=== PATIENT | female | born 1980 | race African-American/Black ===

== ENCOUNTER 2016-05-19 12:47 | Emergency (ER) ==
[2016-05-19] MEDS ORDERED: MORPHINE IV ONE (13:57)
[2016-05-19] MEDS ORDERED: ZOFRAN IV ONE (13:58)
--- NOTE | 2016-05-19 13:59 | PROVIDER DOCUMENTATION ---
HPI-Abdominal Pain/GI Problem - General Chief Complaint: Diarrhea Stated Complaint: ABD PAIN Time Seen by Provider: 05/19/16 13:50 Source: patient Allergies/Adverse Reactions: Patient Allergies Allergy/AdvReac Type Severity Reaction Status Date / Time No Known Allergies Allergy Verified 05/19/16 13:31 Home Medications: Home Medication List Medication Instructions Recorded Confirmed Last Taken Type Estradiol [Estrace] 2 mg PO DAILY 01/21/14 11/27/15 11/26/15 History Valacyclovir HCl [Valtrex] 500 mg PO PRN PRN 03/18/15 11/27/15 11/26/15 History Hyoscyamine Subl [Levsin-Sl] 0.125 mg PO 05/19/16 Unknown History Ketorolac [Toradol] 10 mg PO Q8H PRN PRN #14 tablet 05/19/16 Unknown Rx Ondansetron Odt [Zofran 8Mg Odt] 8 mg PO Q8H PRN PRN #20 tablet 05/19/16 Unknown Rx Sulfamethoxazole/Trimethoprim 1 each PO BID #20 tablet 05/19/16 Unknown Rx [Bactrim Ds Tablet] - History of Present Illness-ABD Nature of Presenting Problems: 35 yof with Abd pain x 24 hours. Pain continues to get worse. Diarrhea, with vomiting x 1. Abdominal Pain Onset Location: reports: generalized abdomen Pain Radiation: reports: no radiation Quality of Pain: reports: cramping, sharp Severity in ED: reports: moderate Onset/Duration: reports: 24 hours ago Timing: reports: still present, getting worse Activities at Onset: reports: moderate activity Exposure to sick contacts?: No Modifying Factors: improves with: analgesics Associated Symptoms: reports: nausea, vomiting Last BM: 24 hours ago Dark Stools Present?: reports: none noticed Rectal Bleeding: reports: none Rectal Pain: reports: none # of Vomiting Episodes: 1 Bruising or Bleeding Gums?: No Similar Symptoms Previously?: No Recently seen or treated by another doctor?: No Review of Systems - Adult - REVIEW OF SYSTEMS - ADULT Constitutional: reports: see HPI Eyes: reports: no symptoms reported. denies: see HPI, discharge, dry eyes, decreased vision, blurred vision, double vision, eye pain, redness, other Ears, Nose, Mouth & Throat: reports: no symptoms reported. denies: see HPI, ear discharge, ear pain, hearing loss, tinnitus, epistaxis, sinus problem, nose pain, loose teeth, mouth/dental pain, mouth swelling, hoarseness, throat pain, throat swelling, other Cardiovascular: reports: no symptoms reported. denies: see HPI, chest pain, edema, heart murmur, irregular heart rate, orthopnea, palpitations, poor circulation, PND, syncope, other Respiratory: reports: no symptoms reported. denies: see HPI, chronic cough, cough, dyspnea on exertion, excessive sputum production, hemoptysis, pleurisy, shortness of breath, wheezing, other Gastrointestinal: reports: see HPI, abdominal pain, diarrhea, nausea, vomiting. denies: no symptoms reported, hematemesis, constipation, difficulty swallowing , frequent heartburn, poor appetite, rectal bleeding, other Genitourinary: reports: no symptoms reported. denies: see HPI, dysuria, discharge, frequency, flank pain, frequent UTI's, hematuria, hesitency, incontinence, urinary retention, urgency, other Musculoskeletal: reports: no symptoms reported, joint pain, muscle aches. denies: see HPI, bone pain, back pain, frequent leg cramps, joint swelling, muscle weakness, neck pain, other Integumentary: reports: no symptoms reported. denies: see HPI, hives, hair loss , itching, mole changes, nail changes, rash, skin sores/ulcer, skin thickening, other Neurological: reports: no symptoms reported. denies: see HPI, ataxia, dizziness /vertigo, headache/migraines, loss of balance, numbness, paresthesia, seizure, slurred speech, syncope, tremors, other Psychiatric: reports: no symptoms reported. denies: see HPI, anxiety, anti- depressant use, alcohol/drug dependence, depression, emotional problems, insomnia, panic attacks, suicidal thoughts, other Endocrine: reports: no symptoms reported. denies: see HPI, change in skin pigment, excessive sweating, goiter, cold intolerance, heat intolerance, increased hunger, increased thirst, polyuria, other All Other Systems: Reviewed and Negative Past History - Adult - PAST MEDICAL HISTORY-ADULT Review of Records: reports: Old Records Reviewed, Nursing Assessment Review, Medications Reviewed, Social history reviewed & non-contributory. Major Childhood Illnesses: reports: denies history Respiratory: reports: sleep apnea Gastrointestinal: reports: hemorrhoids, IBS Obstetrical/Gynecological: reports: endometriosis - PRIOR SURGERIES/PROCEDURES Surgical/Procedure History: reports: appendectomy, cholecystectomy, hysterectomy , , orthopedic (extremity) - IMMUNIZATION STATUS Childhood Immunizations: See Nurse Assessment Flu Vaccine: See Nurse Assessment - FAMILY HISTORY Family History: reviewed, not pertinent Physical Exam-General - PHYSICAL EXAM-ADULT Initial Vital Signs Reviewed: Yes - CONSTITUTIONAL General Appearance: appears well, alert, no apparent distress. negative: mild distress, moderate distress, severe distress, cachetic, obese, thin, anxious, lethargic, slow to respond, obtunded, combative, other - EYES Eyes: PERRL/EOMI, pink conjunctivae. negative: fundi clear, no AV nicking, anisocoria, conjuctival exudate, EOM palsy, meningismus, pale conjunctivae, photophobia, sclera injected, scleral icterus, subconjunctival hemorrhage, sunken eyes, other - HEAD, EARS, NOSE, MOUTH & THROAT HENMT: normocephalic/atraumatic, moist mucous membranes, normal ENT inspection, TMs normal, pharynx normal. negative: angioedema, dental decay, hearing deficit , pharyngeal erythema, tonsillar exudate, TM abnormal, TM obscurred by cerumen, frontal tenderness, maxillary tenderness, other - NECK Neck: non-tender, full range of motion, supple, normal inspection. negative: Brudzinski's sign, carotid bruit, C-spine tenderness, limited range of motion, lymphadenopathy, meningismus, trachial deviation, tender lateral, tender midline , thyromegaly, other - RESPIRATORY Respiratory: chest non-tender, lungs clear, normal breath sounds, no pleuratic chest pain, no respiratory distress, no accessory muscle use. negative: respiratory distress, decreased breath sounds, accessory muscle use, crackles, rales, rhonchi, stridor, wheezing, dull on percussion, prolonged expiration, pain on inspiration, plerual rub, retractions, splinting, decreased rate, increased rate, crepitus, other - CARDIOVASCULAR Cardiovascular: normal peripheral pulses, regular rate, rhythm, no edema, no gallop, no JVD, no murmur. negative: JVD, bradycardia, tachycardia, diastolic murmur, systolic murmur, gallop/S3, gallop/S4, extra beats, friction rub, irregularly irregular, PMI displaced laterally, other - CHEST (BREASTS) Chest/Breast: deferred. negative: normal breast inspection, no masses/lumps, no tenderness, nipple discharge, tenderness, mass/lump noted, other - GASTROINTESTINAL (ABDOMEN) Abdominal Exam: normal bowel sounds, soft, no organomegaly, no pulsatile mass, guarding, tenderness. negative: non tender, abdominal bruit, abnormal bowel sounds, distended, rigid, rebound, hernia, mass, hepatomegaly, spleenomegaly, McBurney's point tenderness, Ceron's sign, obturator sign, prominent aortic pulsations, psoas, Rovsing's sign, other - GENITOURINARY Female Genitalia/Pelvic Exam: deferred Rectal Exam: deferred Hemoccult Exam: deferred - LYMPHATIC Lymphatic: no adenopathy, axilla node tender - MUSCULOSKELETAL Back Exam: normal inspection, no CVA tenderness, no vertebral tenderness. negative: CVA tenderness, decreased range of motion, ecchymosis, kyphosis, lordosis, muscle spasm, scoliosis, swelling, vertebral tenderness, other Extremity: normal range of motion, non-tender, normal gait Progress - PLAN OF CARE/RESULTS Progress/Plan/Lab Results: Laboratory Tests 05/19/16 05/19/16 05/19/16 14:09 14:09 14:15 WBC 4.47 L RBC 4.51 Hgb 13.1 Hct 40.4 MCV 89.6 MCH 29.0 MCHC 32.4 L RDW Std Deviation 13.4 Plt Count 293 MPV 10.2 Immature Gran % (Auto) 0.0 Neut % (Auto) 62.1 Lymph % (Auto) 28.4 [place] % (Auto) 5.4 Eos % (Auto) 3.4 Baso % (Auto) 0.7 Immature Gran # (Auto) 0.00 Neut # (Auto) 2.78 Lymph # (Auto) 1.27 [place] # (Auto) 0.24 Eos # (Auto) 0.15 Baso # (Auto) 0.03 Sodium 139 Potassium 3.5 Chloride 102 Carbon Dioxide 25 Anion Gap 12 BUN 9 Creatinine 0.6 Estimated GFR/1.73 m2 > 60 BUN/Creatinine Ratio 15 Glucose 91 Calculated Osmolality 276 Calcium 10.0 Total Bilirubin 0.30 AST 20 ALT 9 L Alkaline Phosphatase 58 Total Protein 7.9 Albumin 4.6 Globulin 3.0 Albumin/Globulin Ratio 1.0 Amylase 54 Lipase 11 L Urine Source CLEAN CATCH Urine Color YELLOW Urine Clarity CLEAR Urine pH 6.0 Ur Specific [place] 1.020 Urine Protein 1+(30 mg/dL) A Urine Ketones 2+(Moderate) A Urine Blood 2+ A Urine Nitrite NEGATIVE Urine Bilirubin NEGATIVE Urine Urobilinogen NORMAL Urine Microscopic RBC 10-20 A Urine WBC 1+ A Urine Microscopic WBC <10 Ur Epithelial Cells >10 A Urine Glucose NEGATIVE Orders Category Date Time Status ED: Urine Bedside ORDERED Care 05/19/16 13:56 Active Saline Loc DIRECTED Care 05/19/16 13:56 Active NPO Diet 05/19/16 13:[address] ABD/PELVIS W/ IV CONT ONLY [CT] Stat Exams 05/19/16 13:57 Draft AMYLASE [CHEM] Stat Lab 05/19/16 14:09 Completed CBC WITH ELECTRONIC DIFF [HEME] Stat Lab 05/19/16 14:09 Completed COMPREHENSIVE METABOLIC PANEL [CHEM] Stat Lab 05/19/16 14:09 Completed LIPASE [CHEM] Stat Lab 05/19/16 14:[address] W/POSS RFLX CULT [URINALYSIS] Stat Lab 05/19/16 14:15 Completed 0.9% Sodium Chloride Inj [Ns] 1,000 ml Med 05/19/16 14:01 Discontinued IV 999 mls/hr Morphine Med 05/19/16 13:57 Discontinued 4 mg IV NOW ONE Ondansetron [Zofran] Med 05/19/16 13:58 Discontinued 4 mg IV NOW ONE Vital Signs Temp Pulse Pulse Pulse Pulse Resp BP 05/19/16 15:40 98 F 60 16 118/84 05/19/16 13:43 84 98 H 73 05/19/16 12:52 76 18 126/82 BP BP BP Pulse Ox 05/19/16 15:40 100 05/19/16 13:43 114/82 120/85 119/86 05/19/16 12:52 No Known Allergies Allergy (Verified 05/19/16 13:31) Estradiol [Estrace] 2 mg PO DAILY 01/21/14 Valacyclovir HCl [Valtrex] 500 mg PO PRN PRN 03/18/15 Hyoscyamine Subl [Levsin-Sl] 0.125 mg PO 05/19/16 Ketorolac [Toradol] 10 mg PO Q8H PRN PRN #14 tablet 05/19/16 Ondansetron Odt [Zofran 8Mg Odt] 8 mg PO Q8H PRN PRN #20 tablet 05/19/16 Sulfamethoxazole/Trimethoprim [Bactrim Ds Tablet] 1 each PO BID #20 tablet 05/19 Dietary Diet NPO Start Amrita May 2 1356 Laboratory 05/19/16 05/19/16 05/19/16 14:15 14:09 14:09 WBC 4.47 L RBC 4.51 Hgb 13.1 Hct 40.4 MCV 89.6 MCH 29.0 MCHC 32.4 L RDW Std Deviation 13.4 Plt Count 293 MPV 10.2 Immature Gran % (Auto) 0.0 Neut % (Auto) 62.1 Lymph % (Auto) 28.4 [place] % (Auto) 5.4 Eos % (Auto) 3.4 Baso % (Auto) 0.7 Immature Gran # (Auto) 0.00 Neut # (Auto) 2.78 Lymph # (Auto) 1.27 [place] # (Auto) 0.24 Eos # (Auto) 0.15 Baso # (Auto) 0.03 Sodium 139 Potassium 3.5 Chloride 102 Carbon Dioxide 25 Anion Gap 12 BUN 9 Creatinine 0.6 Estimated GFR/1.73 m2 > 60 BUN/Creatinine Ratio 15 Glucose 91 Calculated Osmolality 276 Calcium 10.0 Total Bilirubin 0.30 AST 20 ALT 9 L Alkaline Phosphatase 58 Total Protein 7.9 Albumin 4.6 Globulin 3.0 Albumin/Globulin Ratio 1.0 Amylase 54 Lipase 11 L Urine Source CLEAN CATCH Urine Color YELLOW Urine Clarity CLEAR Urine pH 6.0 Ur Specific [place] 1.020 Urine Protein 1+(30 mg/dL) A Urine Ketones 2+(Moderate) A Urine Blood 2+ A Urine Nitrite NEGATIVE Urine Bilirubin NEGATIVE Urine Urobilinogen NORMAL Urine Microscopic RBC 10-20 A Urine WBC 1+ A Urine Microscopic WBC <10 Ur Epithelial Cells >10 A Urine Glucose NEGATIVE - CT/MRI 1 CT Study: Abdomen Impression: Normal (CT normal read by radiologist.) Departure - Departure Time of Disposition Order: 15:56 DIAGNOSIS: Lupus (systemic lupus erythematosus) Qualifiers: Systemic lupus erythematosus type: unspecified Systemic lupus erythematosus organ involvement: unspecified Qualified Code(s): M32.9 - Systemic lupus erythematosus, unspecified UTI (urinary tract infection) Qualifiers: Urinary tract infection type: site unspecified Hematuria presence: with hematuria Qualified Code(s): N39.0 - Urinary tract infection, site not specified Disposition: HOME 01 Certified Medical Emergency: Emergent Condition: Stable Additional Instructions: Try to find a primary care provider for treatment of Lupus. ED Follow Up Instructions: You have been treated by a care provider in the Emergency Department. These instructions are being provided to you so you can have an understanding of how to care for yourself upon discharge. Upon discharge from the Emergency Department, you are responsible for making arrangements for follow-up care by a physician of your choice. Take all prescribed medications as directed. Return to the Emergency Department immediately for any new or worsening symptoms. You may call the Physician Referral phone number at [phone] to obtain a list of Physicians who are taking new patients. Prescriptions: Sulfamethoxazole/Trimethoprim [Bactrim Ds Tablet] 1 each PO BID #20 tablet Ketorolac [Toradol] 10 mg PO Q8H PRN PRN #14 tablet PRN Reason: Pain Ondansetron Odt [Zofran 8Mg Odt] 8 mg PO Q8H PRN PRN #20 tablet PRN Reason: Nausea Referrals: Maria L Hughes [Primary Care Provider] - Forms: Return to School/Parent Work Instructions: Ondansetron oral dissolving tablet, Lupus, Urinary Tract Infection, Ketorolac tablets, Sulfamethoxazole; Trimethoprim, SMX-TMP tablets Attestation - Physician/ EDY Attestation Patient care was provided by Advanced Practice Provider:: Yes Advanced Practice Provider:: Oj Tejada Advanced Practice Provider documentation review:: The Mid-level provider documentation, treatment plan and medical decision making was reviewed by the physician who agrees with all treatment and medical decision making by the MLP.
[2016-05-19] MEDS ORDERED: NS 1,000 ML IV ONE (14:01)
[2016-05-19 14:13] LABS: MANUAL DIFF NEEDED? NO
[2016-05-19 14:15] LABS: BASO% 0.7 % (0.0-0.8); EOS# 0.15 X1000 (0.0-0.7); EOS% 3.4 % (0.0-10.0); HEMATOCRIT 40.4 % (37.0-47.0); HEMOGLOBIN 13.1 g/dL (12.0-16.0); LYMPH# 1.27 X1000 (1.2-3.4); LYMPH% 28.4 % (20.5-51.1); MCHC 32.4 g/dL (33-37); MCV 89.6 FL (81-99); MONO# 0.24 X1000 (0.11-0.59); MONO% 5.4 % (1.7-9.3); MPV 10.2 FL (7.4-10.4); NEUT% 62.1 % (42.2-75.2); PLT 293 X1000 (130-400); RBC 4.51 XMIL (4.2-5.4)
[2016-05-19 14:24] LABS: URINE CULTURE PL NEEDED? NO; URINE SOURCE CLEAN CATCH
[2016-05-19 14:30] LABS: BILIRUBIN URINE NEGATIVE (NEGATIVE); BLOOD URINE 2+ (NEGATIVE); CLARITY CLEAR (CLEAR); COLOR YELLOW; GLUCOSE URINE NEGATIVE (NEGATIVE); LEUKOCYTES URINE 1+ (NEGATIVE); NITRITE URINE NEGATIVE (NEGATIVE); PROTEIN URINE 1+(30 mg/dL) mg/dL (NEGATIVE); UROBILINOGEN URINE NORMAL
[2016-05-19 14:38] LABS: AGAP 12; ALBUMIN 4.6 g/dL (3.5-5.0); ALKALINE PHOSPHATASE 58 U/L (32-104); AMYLASE 54 U/L (20-200); BUN 9 mg/dL (8-22); CHLORIDE 102 mmol/L (98-107); COSMO 276; GOT 20 U/L (10-30); GPT 9 U/L (10-36); LIPASE 11 U/L (13-60); POTASSIUM 3.5 mmol/L (3.5-5.1); SODIUM 139 mmol/L (136-145); TCO2 25 mmol/L (25-35); TOTAL PROTEIN 7.9 g/dL (6.3-8.3)
[2016-05-19 14:44] LABS: URINE EPITHELIAL CELLS >10 /HPF (<10); URINE WBC <10 /HPF (<10)
--- NOTE | 2016-05-19 15:22 | Diag Imaging Result Document ---
PROCEDURE NAME: CT ABD/PELVIS W/ IV CONT ONLY - 05/19/2016 CT ABDOMEN PELVIS WITH INTRAVENOUS CONTRAST: COMPARISON: None. FINDINGS: The lung bases are clear and the heart size is normal. There is a tiny benign cysts in the liver. There are cholecystectomy clips. There is a possible gastric diverticulum in the region of the spleen. The spleen, pancreas, adrenals and kidneys are normal. The uterus is absent. Urinary bladder and rectum are normal. There is trace pelvic free fluid, nonspecific. No bowel obstruction or inflammation. Bony structures are intact. IMPRESSION: No acute disease.
[2016-05-19 16:23] VITALS: BP 125/89
== END 2016-05-19 16:30 | disposition home or self-care (01) ==
LOC: P.ED 12:47
DX: N39.0 Urinary tract infection, site not specified (principal); M32.9 Systemic lupus erythematosus, unspecified; R10.84 Generalized abdominal pain; R19.7 Diarrhea, unspecified; R11.2 Nausea with vomiting, unspecified; M79.1 Myalgia; M25.50 Pain in unspecified joint
CPT/HCPCS: 74177; 80053; 81001; 81025; 82150; 83690; 85025; 96361; 96374; 96375; J2270; J2405; J7030; Q9967

== ENCOUNTER 2016-05-23 10:36 | Emergency (ER) ==
--- NOTE | 2016-05-23 13:16 | PROVIDER DOCUMENTATION ---
HPI-General Adult - General Source: patient - History of Present Illness -Gen Adult Nature of Presenting Problems: Pt is 35 y/o F presents to the ED with generalized pain, ROMO and N. Pt states was in ED 4 days ago for same symptoms. Pt states pain all over and ROMO. Pt states recently being diagnosed with Lupus. Pt states recent rx of pain meds is not helping the pain. Pt states she does not have a PCP due to no insurance. Location of Pain/Injury: reports: generalized Pain Radiation: reports: no radiation Quality of Pain: reports: aching Severity: reports: moderate Onset/Duration: reports: unsure Timing: reports: still present, intermittent Context/Activities at Onset: reports: light activity Modifying Factors: improves with: nothing Associated Symptoms: reports: headaches, muscle aches, nausea, weakness. denies : anxiety, arm pain, back/neck pain, chest pain, constipation, cough, diaphoresis, diarrhea, dizziness, EENT symptoms, fatigue, fever/chills, genitourinary problems, heartburn, joint pain, loss of appetite, malaise, sinus congestion/drainage, rash, seizure, shortness of breath, sensory/motor loss, pain with inspiration, swelling/mass in abdomen, syncope, vomiting, trouble walking Similar Symptoms Previously?: Yes Recently seen or treated by another doctor?: Yes <Jes Grijalva - Last Filed: 05/23/16 15:22> <Drew Dolan - Last Filed: 05/23/16 15:51> - General Stated Complaint: FLU SX/HEADACHE Time Seen by Provider: 05/23/16 12:53 Allergies/Adverse Reactions: Patient Allergies Allergy/AdvReac Type Severity Reaction Status Date / Time No Known Allergies Allergy Verified 05/19/16 13:31 Home Medications: Home Medication List Medication Instructions Recorded Confirmed Last Taken Type Estradiol [Estrace] 2 mg PO DAILY 01/21/14 11/27/15 11/26/15 History Valacyclovir HCl [Valtrex] 500 mg PO PRN PRN 03/18/15 11/27/15 11/26/15 History Fluconazole [Diflucan] 150 mg PO DAILY #2 tablet 05/19/16 Unknown Rx Hyoscyamine Subl [Levsin-Sl] 0.125 mg PO 05/19/16 Unknown History Ketorolac [Toradol] 10 mg PO Q8H PRN PRN #14 tablet 05/19/16 Unknown Rx Ondansetron Odt [Zofran 8Mg Odt] 8 mg PO Q8H PRN PRN #20 tablet 05/19/16 Unknown Rx Sulfamethoxazole/Trimethoprim 1 each PO BID #20 tablet 05/19/16 Unknown Rx [Bactrim Ds Tablet] Acetaminophen/Diphenhydramine 1 each PO Q6-8H PRN PRN #30 tablet 05/23/16 Unknown Rx [Percogesic 325-12.5 mg Tablet] Promethazine [Phenergan] 25 mg PO Q6H PRN PRN #20 tablet 05/23/16 Unknown Rx Review of Systems - Adult - REVIEW OF SYSTEMS - ADULT Constitutional: denies: chills, fever Eyes: denies: blurred vision, double vision Ears, Nose, Mouth & Throat: denies: ear pain, nose pain, throat pain Cardiovascular: denies: chest pain, heart murmur, irregular heart rate Respiratory: denies: cough, shortness of breath, wheezing Gastrointestinal: reports: nausea. denies: abdominal pain, diarrhea, vomiting Genitourinary: denies: dysuria, hematuria Musculoskeletal: reports: muscle aches, other (generalized pain) Integumentary: denies: hives, itching Neurological: reports: headache/migraines (ROMO). denies: dizziness/vertigo Psychiatric: reports: no symptoms reported Endocrine: reports: no symptoms reported Hematologic/Lymphatic: reports: no symptoms reported Allergic/Immunologic: reports: no symptoms reported All Other Systems: Reviewed and Negative <Jes Grijalva - Last Filed: 05/23/16 15:22> Past History - Adult - PAST MEDICAL HISTORY-ADULT Review of Records: reports: Nursing Assessment Review, Medications Reviewed, Social history reviewed & non-contributory. Major Childhood Illnesses: reports: denies history Cardiovascular: reports: denies history Respiratory: reports: sleep apnea Gastrointestinal: reports: hemorrhoids, IBS Obstetrical/Gynecological: reports: endometriosis Genitourinary: reports: denies history Musculoskeletal: reports: denies history Neurological: reports: denies history Psychiatric: reports: depression Endocrine/Immune: reports: lupus Other Conditions: reports: denies history - PRIOR SURGERIES/PROCEDURES Surgical/Procedure History: reports: appendectomy, cholecystectomy, hysterectomy , , orthopedic (extremity) - IMMUNIZATION STATUS Childhood Immunizations: See Nurse Assessment Flu Vaccine: See Nurse Assessment - FAMILY HISTORY Family History: reviewed, not pertinent - SOCIAL HISTORY Smoking: cigarettes, less than 1 pack/day Provider spent 3-5 mins advising pt. on dangers of tobacco.: Discussed manners to quit use, and f/u contacts for add'l counseling. Substance Use: alcohol Alcohol Use Frequency: occasionally Number of drinks per typical drinking period:: 2 drinks Living Situation: family <Jes Grijalva - Last Filed: 05/23/16 15:22> Physical Exam-General - PHYSICAL EXAM-ADULT Initial Vital Signs Reviewed: Yes - CONSTITUTIONAL General Appearance: appears well, alert, mild distress - EYES Eyes: PERRL/EOMI, pink conjunctivae, fundi clear, no AV nicking - HEAD, EARS, NOSE, MOUTH & THROAT HENMT: normocephalic/atraumatic, moist mucous membranes, normal ENT inspection, TMs normal, pharynx normal - NECK Neck: non-tender, full range of motion, supple, normal inspection - RESPIRATORY Respiratory: chest non-tender, lungs clear, normal breath sounds, no pleuratic chest pain, no respiratory distress, no accessory muscle use - CARDIOVASCULAR Cardiovascular: normal peripheral pulses, regular rate, rhythm, no edema, no gallop, no JVD, no murmur - GASTROINTESTINAL (ABDOMEN) Abdominal Exam: normal bowel sounds, non tender, soft, no organomegaly, no pulsatile mass - LYMPHATIC Lymphatic: no adenopathy - MUSCULOSKELETAL Back Exam: normal inspection, no CVA tenderness, no vertebral tenderness Extremity: normal range of motion, non-tender, normal gait, normal inspection, no pedal edema, no calf tenderness - SKIN Integumentary: normal color, normal turgor, warm/dry - NEUROLOGIC Neurologic: grossly normal - PSYCHIATRIC Psych/Mental Status: normal mood/affect, oriented x 3 <Jes Grijalva - Last Filed: 05/23/16 15:22> - GENITOURINARY Rectal Exam: normal rectal tone, hemorrhoids. negative: black stool, blood streaked stool, decreased tone, mass, tenderness Hemoccult Exam: heme negative stool <Drew Dolan - Last Filed: 05/23/16 15:51> Progress - PLAN OF CARE/RESULTS Progress/Plan/Lab Results: Orders Category Date Time Status CBC WITH DIFF [HEME] Stat Lab 05/23/16 13:19 Ordered COMPREHENSIVE METABOLIC PANEL [CHEM] Stat Lab 05/23/16 13:19 Ordered FREE T4 Stat Lab 05/23/16 13:19 Ordered LIPASE [CHEM] Stat Lab 05/23/16 13:19 Ordered TSH Stat Lab 05/23/16 13:[address] W/POSS RFLX CULT [URINALYSIS] Stat Lab 05/23/16 13:19 Uncollected Vital Signs - 24 hr 05/23/16 10:46 Pulse Rate 89 Respiratory 18 Rate Blood Pressure 133/76 O2 Sat by Pulse 100 Oximetry Laboratory Tests 05/23/16 05/23/16 05/23/16 13:30 13:30 13:30 WBC 3.41 L RBC 3.87 L Hgb 11.4 L Hct 34.5 L MCV 89.1 MCH 29.5 MCHC 33.0 RDW Std Deviation 13.1 Plt Count 262 MPV 10.2 Immature Gran % (Auto) 0.0 Neut % (Auto) 50.7 Lymph % (Auto) 39.9 Maverick % (Auto) 5.9 Eos % (Auto) 2.9 Baso % (Auto) 0.6 Immature Gran # (Auto) 0.00 Neut # (Auto) 1.73 Lymph # (Auto) 1.36 Maverick # (Auto) 0.20 Eos # (Auto) 0.10 Baso # (Auto) 0.02 Sodium 139 Potassium 3.8 Chloride 107 Carbon Dioxide 25 Anion Gap 8 BUN 8 Creatinine 0.9 Estimated GFR/1.73 m2 > 60 BUN/Creatinine Ratio 9 Glucose 102 Calculated Osmolality 276 Calcium 9.3 Total Bilirubin 0.20 AST 12 ALT 5 L Alkaline Phosphatase 45 Total Protein 6.8 Albumin 4.2 Globulin 3.0 Albumin/Globulin Ratio 2.0 Lipase 22 TSH 0.93 Free T4 1.09 <Jes Grijalva - Last Filed: 05/23/16 15:22> - PLAN OF CARE/RESULTS Progress/Plan/Lab Results: Laboratory Tests 05/23/16 05/23/16 05/23/16 13:30 13:30 13:30 WBC 3.41 L RBC 3.87 L Hgb 11.4 L Hct 34.5 L MCV 89.1 MCH 29.5 MCHC 33.0 RDW Std Deviation 13.1 Plt Count 262 MPV 10.2 Immature Gran % (Auto) 0.0 Neut % (Auto) 50.7 Lymph % (Auto) 39.9 Maverick % (Auto) 5.9 Eos % (Auto) 2.9 Baso % (Auto) 0.6 Immature Gran # (Auto) 0.00 Neut # (Auto) 1.73 Lymph # (Auto) 1.36 Maverick # (Auto) 0.20 Eos # (Auto) 0.10 Baso # (Auto) 0.02 Sodium 139 Potassium 3.8 Chloride 107 Carbon Dioxide 25 Anion Gap 8 BUN 8 Creatinine 0.9 Estimated GFR/1.73 m2 > 60 BUN/Creatinine Ratio 9 Glucose 102 Calculated Osmolality 276 Calcium 9.3 Total Bilirubin 0.20 AST 12 ALT 5 L Alkaline Phosphatase 45 Total Protein 6.8 Albumin 4.2 Globulin 3.0 Albumin/Globulin Ratio 2.0 Lipase 22 TSH 0.93 Free T4 1.09 Stool Occult Blood 05/23/16 15:25 WBC RBC Hgb Hct MCV MCH MCHC RDW Std Deviation Plt Count MPV Immature Gran % (Auto) Neut % (Auto) Lymph % (Auto) Maverick % (Auto) Eos % (Auto) Baso % (Auto) Immature Gran # (Auto) Neut # (Auto) Lymph # (Auto) Maverick # (Auto) Eos # (Auto) Baso # (Auto) Sodium Potassium Chloride Carbon Dioxide Anion Gap BUN Creatinine Estimated GFR/1.73 m2 BUN/Creatinine Ratio Glucose Calculated Osmolality Calcium Total Bilirubin AST ALT Alkaline Phosphatase Total Protein Albumin Globulin Albumin/Globulin Ratio Lipase TSH Free T4 Stool Occult Blood NEGATIVE Orders Category Date Time Status CBC WITH DIFF [HEME] Stat Lab 05/23/16 13:30 Completed COMPREHENSIVE METABOLIC PANEL [CHEM] Stat Lab 05/23/16 13:30 Completed FREE T4 Stat Lab 05/23/16 13:30 Completed LIPASE [CHEM] Stat Lab 05/23/16 13:30 Completed OCCULT BLOOD SCREEN STOOL PL Stat Lab 05/23/16 15:25 Completed TSH Stat Lab 05/23/16 13:[address] W/POSS RFLX CULT [URINALYSIS] Stat Lab 05/23/16 13:19 Uncollected Morphine Med 05/23/16 15:16 Discontinued 4 mg IV NOW ONE Ondansetron [Zofran] Med 05/23/16 15:16 Discontinued 4 mg IV NOW ONE Vital Signs Pulse Resp BP Pulse Ox 05/23/16 10:46 89 18 133/76 100 No Known Allergies Allergy (Verified 05/19/16 13:31) Estradiol [Estrace] 2 mg PO DAILY 01/21/14 Valacyclovir HCl [Valtrex] 500 mg PO PRN PRN 03/18/15 Fluconazole [Diflucan] 150 mg PO DAILY #2 tablet 05/19/16 Hyoscyamine Subl [Levsin-Sl] 0.125 mg PO 05/19/16 Ketorolac [Toradol] 10 mg PO Q8H PRN PRN #14 tablet 05/19/16 Ondansetron Odt [Zofran 8Mg Odt] 8 mg PO Q8H PRN PRN #20 tablet 05/19/16 Sulfamethoxazole/Trimethoprim [Bactrim Ds Tablet] 1 each PO BID #20 tablet 05/19 Laboratory 05/23/16 05/23/16 05/23/16 15:25 13:30 13:30 WBC 3.41 L RBC 3.87 L Hgb 11.4 L Hct 34.5 L MCV 89.1 MCH 29.5 MCHC 33.0 RDW Std Deviation 13.1 Plt Count 262 MPV 10.2 Immature Gran % (Auto) 0.0 Neut % (Auto) 50.7 Lymph % (Auto) 39.9 Maverick % (Auto) 5.9 Eos % (Auto) 2.9 Baso % (Auto) 0.6 Immature Gran # (Auto) 0.00 Neut # (Auto) 1.73 Lymph # (Auto) 1.36 Maverick # (Auto) 0.20 Eos # (Auto) 0.10 Baso # (Auto) 0.02 Sodium Potassium Chloride Carbon Dioxide Anion Gap BUN Creatinine Estimated GFR/1.73 m2 BUN/Creatinine Ratio Glucose Calculated Osmolality Calcium Total Bilirubin AST ALT Alkaline Phosphatase Total Protein Albumin Globulin Albumin/Globulin Ratio Lipase TSH 0.93 Free T4 1.09 Stool Occult Blood NEGATIVE 05/23/16 13:30 WBC RBC Hgb Hct MCV MCH MCHC RDW Std Deviation Plt Count MPV Immature Gran % (Auto) Neut % (Auto) Lymph % (Auto) Maverick % (Auto) Eos % (Auto) Baso % (Auto) Immature Gran # (Auto) Neut # (Auto) Lymph # (Auto) Maverick # (Auto) Eos # (Auto) Baso # (Auto) Sodium 139 Potassium 3.8 Chloride 107 Carbon Dioxide 25 Anion Gap 8 BUN 8 Creatinine 0.9 Estimated GFR/1.73 m2 > 60 BUN/Creatinine Ratio 9 Glucose 102 Calculated Osmolality 276 Calcium 9.3 Total Bilirubin 0.20 AST 12 ALT 5 L Alkaline Phosphatase 45 Total Protein 6.8 Albumin 4.2 Globulin 3.0 Albumin/Globulin Ratio 2.0 Lipase 22 TSH Free T4 Stool Occult Blood Blood count was decreased from but occult blood was negative. She seems to be feeling better. Will d/c home. <Drew Dolan - Last Filed: 05/23/16 15:51> Departure <Jes Grijalva - Last Filed: 05/23/16 15:22> - Departure Time of Disposition Order: 15:50 Certified Medical Emergency: Emergent <MagdalenoDrew Siva - Last Filed: 05/23/16 15:51> - Departure DIAGNOSIS: Generalized pain Nausea & vomiting Qualifiers: Vomiting type: unspecified Vomiting Intractability: non-intractable Qualified Code(s): R11.2 - Nausea with vomiting, unspecified Disposition: HOME 01 Condition: Good Additional Instructions: Take medication as prescribed. Follow up with your primary care provider. ED Follow Up Instructions: You have been treated by a care provider in the Emergency Department. These instructions are being provided to you so you can have an understanding of how to care for yourself upon discharge. Upon discharge from the Emergency Department, you are responsible for making arrangements for follow-up care by a physician of your choice. Take all prescribed medications as directed. Return to the Emergency Department immediately for any new or worsening symptoms. You may call the Physician Referral phone number at [phone] to obtain a list of Physicians who are taking new patients. Prescriptions: Acetaminophen/Diphenhydramine [Percogesic 325-12.5 mg Tablet] 1 each PO Q6-8H PRN PRN #30 tablet PRN Reason: Pain Promethazine [Phenergan] 25 mg PO Q6H PRN PRN #20 tablet PRN Reason: Nausea Referrals: Maria L Hughes [Primary Care Provider] - Attestation - Scribe Verification/Attestation Scribe:: Jes Grijalva Acting as Scribe for:: Drew Dolan Scribe documention review:: This chart was documented by a scribe and accurately reflects the service the provider performed and the decisions made by the provider. <Jes Grijalva - Last Filed: 05/23/16 15:22> - Physician/ EDY Attestation Patient care was provided by Advanced Practice Provider:: Yes Advanced Practice Provider:: Drew Dolan Advanced Practice Provider documentation review:: The Mid-level provider documentation, treatment plan and medical decision making was reviewed by the physician who agrees with all treatment and medical decision making by the MLP. <Drew Dolan - Last Filed: 05/23/16 15:51> Physician Attestation
[2016-05-23 13:40] LABS: MANUAL DIFF NEEDED? NO
[2016-05-23 13:51] LABS: BASO% 0.6 % (0.0-0.8); EOS% 2.9 % (0.0-10.0); HEMATOCRIT 34.5 % (37.0-47.0); HEMOGLOBIN 11.4 g/dL (12.0-16.0); LYMPH# 1.36 X1000 (1.2-3.4); LYMPH% 39.9 % (20.5-51.1); MCH 29.5 PG (27-31); MCV 89.1 FL (81-99); MONO% 5.9 % (1.7-9.3); MPV 10.2 FL (7.4-10.4); NEUT% 50.7 % (42.2-75.2); PLT 262 X1000 (130-400); RBC 3.87 XMIL (4.2-5.4)
[2016-05-23 14:14] LABS: AGAP 8; ALBUMIN 4.2 g/dL (3.5-5.0); ALKALINE PHOSPHATASE 45 U/L (32-104); BUN 8 mg/dL (8-22); CALCIUM 9.3 mg/dL (8.8-10.2); CHLORIDE 107 mmol/L (98-107); COSMO 276; GOT 12 U/L (10-30); GPT 5 U/L (10-36); LIPASE 22 U/L (13-60); POTASSIUM 3.8 mmol/L (3.5-5.1); SODIUM 139 mmol/L (136-145); TCO2 25 mmol/L (25-35); TOTAL PROTEIN 6.8 g/dL (6.3-8.3)
[2016-05-23 14:24] LABS: FREE T4 1.09 ng/dL (0.93-1.70)
[2016-05-23] MEDS ORDERED: MORPHINE IV ONE (15:16)
[2016-05-23] MEDS ORDERED: ZOFRAN IV ONE (15:16)
[2016-05-23 15:46] LABS: OCCULT BLOOD 1 NEGATIVE (NEGATIVE)
[2016-05-23 16:19] VITALS: BP 128/77
== END 2016-05-23 16:15 | disposition home or self-care (01) ==
LOC: P.ED 10:36
DX: R52 Pain, unspecified (principal); R11.2 Nausea with vomiting, unspecified; R51 Headache; M79.1 Myalgia; R53.1 Weakness; M32.9 Systemic lupus erythematosus, unspecified; F17.210 Nicotine dependence, cigarettes, uncomplicated; Z79.899 Other long term (current) drug therapy; Z71.6 Tobacco abuse counseling
CPT/HCPCS: 36415; 80053; 82270; 83690; 84439; 84443; 85025; 96374; 96375; J2270; J2405